=== PATIENT | female | born 1990 | race Caucasian/White ===

== ENCOUNTER 2023-07-10 12:00 | Emergency (ER) | payer MEDICAID, OTHER ==
[~2023-07-10] VITALS: Ht 172.7 cm; Wt 117.0 kg
[~2023-07-10 12:00] MED LIST: CEPH500C2 MT
[2023-07-10 12:04] VITALS: O2SAT 98
[2023-07-10 13:04] LABS: BASOPHILS % 0.6 % (0.0-2.0); EOSINOPHILS % 1.3 % (0.0-5.0); LYMPHOCYTES % 22.7 % (20.0-50.0); MEAN CORPUSCULAR HEMOGLOBIN 28.6 pg (28.0-32.0); MEAN CORPUSCULAR HGB CONC 33.2 g/dL (31.0-37.0); MONOCYTES % 6.9 % (2.0-8.0); NEUTROPHILS % 68.5 % (40.0-76.0); PLATELET 440 x1000/uL (130-400); RED BLOOD CELL COUNT 4.53 mill/uL (4.2-5.4); RED CELL DISTRIBUTION WIDTH 14.5 % (11.6-14.6); WHITE BLOOD COUNT 9.4 x1000/uL (4.5-11.0)
[2023-07-10] MEDS ORDERED: HYDR26CR2 TP (13:56)
[2023-07-10] MEDS ORDERED: MECL-299 MT (13:58)
[2023-07-10] MEDS ORDERED: MECLIZINE 25MG TABLET PO ONE (14:00)
[2023-07-10] MEDS: MECLIZINE 12.5MG TABLET PO NR (14:13)
[2023-07-10] MEDS ORDERED: IBUP-2029 MT (14:34)
[2023-07-10 14:48] VITALS: BP 109/72; PULSE 80; RESP 20; TEMP 98.4
== END 2023-07-10 14:49 | disposition home or self-care (01) ==
LOC: ER 12:12
DX: K64.4 Residual hemorrhoidal skin tags (principal); Z79.899 Other long term (current) drug therapy
CPT/HCPCS: 99283; 85025; 36415; J8597

== ENCOUNTER 2024-03-22 07:28 | Emergency (ER) | payer MEDICAID ==
[~2024-03-22] VITALS: Ht 157.5 cm; Wt 115.0 kg
[~2024-03-22 07:28] MED LIST changes: +HYDR26CR2 TP; +IBUP-2029 MT; +MECL-299 MT
[2024-03-22 07:37] VITALS: O2SAT 98
[2024-03-22] MEDS ORDERED: AMOX1TAB16 MT (09:31)
[2024-03-22] MEDS ORDERED: CLOT15CR27 TP (09:31)
[2024-03-22 09:35] VITALS: BP 130/68; PULSE 78; RESP 16; TEMP 36.83628; O2SAT 98
== END 2024-03-22 09:35 | disposition home or self-care (01) ==
LOC: ER 07:28
DX: B35.1 Tinea unguium (principal); E11.9 Type 2 diabetes mellitus without complications; Z79.899 Other long term (current) drug therapy
CPT/HCPCS: 99283

== ENCOUNTER 2024-07-05 09:20 | Emergency (ER) | payer MEDICAID ==
[~2024-07-05] VITALS: Ht 157.5 cm; Wt 114.0 kg
[~2024-07-05 09:20] MED LIST changes: +AMOX1TAB16 MT; +CLOT15CR27 TP
[2024-07-05 09:26] VITALS: O2SAT 100
[2024-07-05 09:41] VITALS: TEMP 37.1; O2SAT 95
[2024-07-05] MEDS ORDERED: AMOX1TAB16 MT (10:21)
[2024-07-05 10:38] VITALS: TEMP 98.8
[2024-07-05] MEDS: ACETAMINOPHEN 650MG/20.3ML UDC PO ONE (10:38)
[2024-07-05 11:09] VITALS: BP 125/69; PULSE 85; RESP 16
[2024-07-05] MEDS: KETOROLAC 30MG/ML VIAL IV STA (11:09)
== END 2024-07-05 11:18 | disposition home or self-care (01) ==
LOC: ER 09:20
DX: H92.01 Otalgia, right ear (principal); E11.9 Type 2 diabetes mellitus without complications
CPT/HCPCS: 99283; 96374; J1885